=== PATIENT | male | born 1980 | race Caucasian/White ===

== ENCOUNTER 2022-05-07 05:50 | Emergency (ER) | payer OTHER ==
[~2022-05-07] VITALS: Ht 170.2 cm; Wt 149.7 kg
[2022-05-07 06:00] VITALS: BP 160/90
--- NOTE | 2022-05-07 06:00 | NUR ---
to bed ambulatory
--- NOTE | 2022-05-07 06:20 | NUR ---
Dr. Farnsworth examining patient.
--- NOTE | 2022-05-07 06:34 | NUR ---
XRAY AT BEDSIDE
--- NOTE | 2022-05-07 06:45 | NUR ---
LAB AT BEDSIDE
--- NOTE | 2022-05-07 06:45 | NUR ---
41/M BIB SELF C/C CP RAD TO RIGHT ARM X430A. PER PATIENT PAIN "FEELS LIKE PRESSURE" / . PATIENT REPORTS TINGLING IN THE FINGERS. PATIETN STATED HE HAS FELT LIKE THIS IN HE PAST DURING TIMES OF STRESS AND IS CURRENTLY STRESSED DUE TO WORK. PATIENT REPORTS DRINKING MONSTER AT 350A AND HAS BEEN HAVING THEM ON DAILY BASIS. PATIENT IS AAOX4 AND AMBULATORY. DENIES SOB/N/V/VISUAL CHANGES/NO DEFICITS NOTED. RR APPEAR TO BE EVEN AND UNLABORED. DOESNT APPEAR TO BE IN DITRESS. PATIENT PLACED IN BED AND BOOM TENDER. BED LOW AND LOCKED. SIDE RAIL UP X1 FOR SAFETY. PMHX DM, HIGH CHOLESTEROL RX METFORMIN (NONCOMPLIANT) NKA
--- NOTE | 2022-05-07 07:11 | NUR ---
REPORT GIVEN TO ASHLEY SHARIF. TRANSFER OF CARE.
--- NOTE | 2022-05-07 07:13 | NUR ---
Report recieved from ASHLEY Gomes for transfer of care.
[2022-05-07 07:22] LABS: BASOPHILS % (AUTO) 0.4 % (0.0-2.0); EOSINOPHILS # (AUTO) 0.2 K/uL (0-0.4); EOSINOPHILS % (AUTO) 2.1 % (0.0-4.0); HEMATOCRIT 42.9 % (36-52); LYMPHOCYTES % (AUTO) 22.9 % (20.5-51.1); MEAN CORPUSCULAR HEMOGLOBIN 33 pg (27-31); MEAN CORPUSCULAR HGB CONC 35 g/dL (33-37); MEAN CORPUSCULAR VOLUME 93.9 fL (80-94); MONOCYTES # (AUTO) 0.6 K/uL (0.8-1.0); MONOCYTES % (AUTO) 6.3 % (1.7-9.3); NEUTROPHILS % (AUTO) 68.3 % (42.2-75.2); PLATELET COUNT (AUTO) 251 K/uL (140-450); RED BLOOD CELL COUNT(AUTO) 4.57 MIL/uL (4.20-6.10); WHITE BLOOD COUNT (AUTO) 8.9 K/uL (4.8-10.8)
[2022-05-07 07:51] LABS: ALBUMIN 3.3 g/dL (3.4-5.0); CARBON DIOXIDE 28.6 mmol/L (21-32); CREATININE 0.8 mg/dL (0.6-1.3); POTASSIUM 3.6 mmol/L (3.5-5.1); TOTAL BILIRUBIN 0.7 mg/dL (0.0-1.0)
--- NOTE | 2022-05-07 08:57 | NUR ---
Lab at bedside.
[2022-05-07 10:05] VITALS: BP 123/81
--- NOTE | 2022-05-07 10:05 | NUR ---
Patient discharged with v/s stable. Written and verbal after care instructions given. Patient verbalized understanding. Ambulatory with steady gait. All questions addressed prior to discharge. Advised to follow up with PMD.
--- NOTE | 2022-05-07 10:10 | NUR ---
The patient's care was reviewed and supervised by Rosanna Waddell, RN, RN.
== END 2022-05-07 10:05 | disposition home or self-care (01) ==
LOC: MED 05:50
DX: R07.89 Other chest pain (principal); R20.0 Anesthesia of skin; R20.2 Paresthesia of skin
CPT/HCPCS: 36415; 71045; 80053; 83880; 84484; 85025; 93005; 99285; Q0092